=== PATIENT | male | born 1960 | race Caucasian/White ===

== ENCOUNTER 2017-10-05 12:47 | Day surgery (SDC) | payer OTHER, SELFPAY ==
[2017-10-01 12:24] VITALS: BMI 32.5
[2017-10-05] VITALS (12 sets, daily range): BP systolic 119–144; BP diastolic 72–93; PULSE 52–72; RESP 10–16; TEMP 36.6–36.8; O2SAT 88–98; BMI 32.5
[2017-10-05] MEDS: LACTATED RINGERS 1,000 ML 42 ML IV ×2 (13:20→15:32)
--- NOTE | 2017-10-05 14:08 | PM.OP.1 ---
Operative Date/Time/Diagnoses Date of procedure: 10/05/17 Time of procedure: 16:05 Pre-op diagnosis: Comminuted left clavicle fracture Post-op diagnosis: same Procedure & Clinicians Procedure: Open reduction internal fixation of left clavicle fracture Same procedure as scheduled: Yes Indications: Patient is a 57-year-old gentleman who 10 days ago fractured his left clavicle with a comminuted displaced fracture. He presented to my office and after discussion the risks benefits and alternatives requested that we proceed with surgery. Risks discussed included but were not limited to nonunion, infection, nerve damage, deep venous thrombosis, pulmonary embolism, stroke, myocardial infarction, permanent paralysis and . Surgeon: Tyshawn Irizarry Flight Engineer Performance Qualified: Kera Blanco Click Yes if Unassisted: No Anesthesia Type: General and Local Operative Notes Findings: Severely comminuted fracture with almost no opposition of the larger fragments. Satisfactory reduction at the conclusion of the procedure. Closure Type: primary Specimen(s): none sent Implants & Drains: There was an 8 hole left mid shaft clavicle plate from [facility] with 7 nonlocking screws placed. Applied: implant(s) Estimated Blood Loss (mL): 50 Blood products transfused: none Tourniquet time (min): 0 Procedure in detail: The patient was seen in the preoperative area we identified the left shoulder as the operative site and this was marked with my initials. He received preoperative antibiotics and was taken to the operating room and placed on the operating room table in supine position where he underwent induction of a general anesthetic. Following the onset of satisfactory general anesthesia, he was repositioned in the ?beach chair? position with a roll between the shoulder blades to extend the clavicle. The left arm was prepared for the fingertips to the base of the neck with ChloraPrep in the usual fashion and draped with sterile drapes. An approximately 10 cm incision was created overlying the fracture deformity. Subcutaneous flaps were raised. The fascia was elevated from the clavicle with electric cautery. There were 4 major fragments, the proximal and distal fragments and then 2 large comminuted fragments in between. It became evident that the length would be determined by aligning the comminuted fragments. One was aligned with the proximal fragment 1 with a distal. The 1 that was aligned distally could be held in place with a K-wire and this was done. A plate was then bent to the appropriate curvature and applied to the reduced clavicle. A single screw was placed in the lateral fragment to control it and then the medial fragment was reduced to the plate. A leg screw was placed to engage the medial comminuted fragment through the plate. There were 3 additional medial screws beyond the lag screw. There was too much comminution underneath the 4th hole from the lateral and this was left open. The 3 screws on the lateral and were then filled as well. A K-wire was then removed from the lateral comminuted fragment and was held in place with soft tissue. The wound was copiously irrigated. Closure was obtained with 0 Vicryl in the muscular fascia, 3 O Vicryl in a subcutaneous layer running 4 0 Monocryl and Steri-Strips for skin. A x-ray was obtained in the operating room which confirmed appropriate position of the fracture and hardware. The wound was dressed with sterile 4x4s, and an adhesive dressing. The patient was subsequently transferred to the recovery room in good condition having tolerated the procedure well. Complications: none Condition: stable Disposition: PACU Plan for aftercare: The patient will be allowed to use his arm as tolerated but initially restricted from driving or lifting more than 10 lb. He will be started on physical therapy and gently regain motion and function of his arm. His follow-up will be in 4 weeks. The intention is that he be discharged today.
--- NOTE | 2017-10-05 14:08 | PM.PREOP ---
Pre-operative Note Interval Note Pre-op Check: Yes History & Physical Reviewed by Physician and Yes Exam Performed Changes: No
[2017-10-05] MEDS: CEFAZOLIN 2 GM/100 ML FROZ.PIGGY IV (14:28)
--- NOTE | 2017-10-05 15:00 | SUR.OPER ---
Beach chair on padded OR bed. Head on gel donut secured with tape over gauze. Non-operative arm secured <90 degrees abduction on padded arm board. Operative arm under control of surgeon. Pillow under knees. Safety belt at thigh. Cloth tape over blanket over lower legs.
[2017-10-05] MEDS: BUPIVACAINE 0.5% W/ EPI (PF) VIAL 30 ML INJ (15:08)
--- NOTE | 2017-10-05 16:28 | SUR.PHASEI ---
Quite restless on arrival with slurred speech when talking and lack of clarity.
[2017-10-05] MEDS: fentaNYL 100 MCG/2 ML INJ 50 MCG IV ×2 (16:36→16:44)
[2017-10-05] MEDS: OXYCODONE IR 5 MG TABLET PO (17:20)
== END 2017-10-05 17:35 | disposition home or self-care (01) ==
PROVIDERS: PCP Family Medicine; Visit Provider Orthopaedic Surgery
PROC: 0PSB04Z Reposition Left Clavicle with Internal Fixation Device, Open Approach (ICD-10-PCS; CPT 23515; principal; 2017-10-05 14:15)
DX: S42.022A Displaced fracture of shaft of left clavicle, initial encounter for closed fracture (principal); V18.0XXA Pedal cycle driver injured in noncollision transport accident in nontraffic accident, initial encounter; Y93.55 Activity, bike riding
CPT/HCPCS: 23515; J0690; J1100; J2250; J2405; J2704; J3010